=== PATIENT | male | born 1945 | race Caucasian/White ===

== ENCOUNTER 2023-01-07 19:24 | Inpatient (IN) | payer MEDICARE, OTHER ==
[~2023-01-07] VITALS: Ht 167.6 cm; Wt 90.3 kg
[2023-01-07 20:00] VITALS: BP 115/61; TEMP 98; O2SAT 99
[2023-01-07] MEDS ORDERED: REMEDY ESSENTIAL ZINC PASTE 113 GM TOP PRN (21:15)
[2023-01-07] MEDS ORDERED: TRAZ-182 PO (23:10)
[2023-01-07] MEDS ORDERED: ASPI81TA31 PO (23:10)
[2023-01-07] MEDS ORDERED: PANT40TA49 PO (23:10)
[2023-01-07] MEDS ORDERED: CHOL500062 PO (23:10)
[2023-01-07] MEDS ORDERED: TAMS-3 PO (23:10)
[2023-01-07] MEDS ORDERED: PROP10DR4 OP (23:10)
[2023-01-07] MEDS ORDERED: OXYC5TAB3 PO (23:10)
[2023-01-07] MEDS ORDERED: ACET-73 PO (23:10)
[2023-01-07] MEDS ORDERED: CALC200T42 PO (23:10)
[2023-01-07] MEDS ORDERED: METF-440 PO (23:10)
[2023-01-07] MEDS ORDERED: FINA1TAB11 PO (23:10)
[2023-01-07] MEDS ORDERED: FENO160T PO (23:10)
[2023-01-07] MEDS ORDERED: FERR324T17 PO (23:10)
[2023-01-07] MEDS ORDERED: IPRA0.2S6 NEB (23:20)
[2023-01-07] MEDS ORDERED: ALBU2.5V38 NEB (23:20)
[2023-01-08] VITALS (7 sets, daily range): BP systolic 95–120; BP diastolic 56–65; TEMP 98–98.4; O2SAT 96–99
[2023-01-08] MEDS: OXYCODONE HCL 5 MG TABLET PO PRN ×3 (04:57→20:43)
[2023-01-08] MEDS ORDERED: IPRA3AMP23 IH (11:44)
[2023-01-08] MEDS ORDERED: ALBU2.5V38 IH (11:45)
[2023-01-08] MEDS ORDERED: OXYCODONE HCL 5 MG TABLET PO PRN (13:15)
[2023-01-08] MEDS ORDERED: DEXTROSE 50% 50 ML DISP.SYRIN IV PRN (13:15)
[2023-01-08] MEDS ORDERED: ACETAMINOPHEN ES 500 MG TABLET PO PRN (13:15)
[2023-01-08] MEDS ORDERED: METF-495 PO (13:35)
[2023-01-08] MEDS: IPRATROPIUM BROMIDE 0.5 MG/2.5 ML NEBU NEB SCH ×2 (15:46→23:30)
[2023-01-08] MEDS: ALBUTEROL SULFATE 2.5 MG/3 ML NEBU IH SCH ×2 (15:46→23:30)
[2023-01-08] MEDS: BLOOD SUGAR DIAGNOSTIC 1 EACH STRIP VI SCH ×2 (17:16→20:51)
[2023-01-08] MEDS: CALCIUM CITRATE 950MG (=200 MG ELEMENTAL CALCIUM) TAB PO SCH (17:17)
[2023-01-08] MEDS: FERROUS GLUCONATE 324 MG TABLET PO SCH (17:18)
[2023-01-08] MEDS: PROTEIN SUPPLEMENT (PROSTAT) 30 ML LIQUID PO SCH (17:23)
[2023-01-08] MEDS: ASPIRIN 81 MG TAB.CHEW PO SCH (17:23)
[2023-01-08] MEDS ORDERED: METFORMIN HCL 500 MG TABLET PO SCH (18:00)
[2023-01-08] MEDS: TRAZODONE 50 MG TABLET PO SCH (20:43)
[2023-01-09] VITALS (8 sets, daily range): BP systolic 93–105; BP diastolic 47–66; TEMP 98–98.4; O2SAT 95–99
[2023-01-09] MEDS: PANTOPRAZOLE SODIUM 40 MG TABLET.DR PO SCH (06:17)
[2023-01-09 06:56] LABS: BASOPHILS % (AUTO) 0.5 % (0.0-2.0); EOSINOPHILS # (AUTO) 0.1 K/uL (0.0-0.7); EOSINOPHILS % (AUTO) 2.6 % (0.0-7.0); HEMOGLOBIN 7.7 g/dL (12.5-16.3); LYMPHOCYTES # (AUTO) 0.5 K/uL (0.8-4.8); LYMPHOCYTES % (AUTO) 12.9 % (20.5-51.5); MEAN CORPUSCULAR HEMOGLOBIN 30.4 uug (23.8-33.4); MEAN CORPUSCULAR HGB CONC 33 g/dL (32.5-36.3); MEAN CORPUSCULAR VOLUME 91.3 fL (73.0-96.2); MONOCYTES # (AUTO) 0.5 K/uL (0.1-1.30); MONOCYTES % (AUTO) 13.2 % (0.0-11.0); NEUTROPHILS # (AUTO) 2.8 K/uL (1.8-8.9); NEUTROPHILS % (AUTO) 70.8 % (38.5-71.5); PLATELET COUNT (AUTO) 79 K/uL (152-348); RED BLOOD CELL COUNT(AUTO) 2.52 MIL/uL (4.06-5.63); RED CELL DISTRIBUTION WIDTH 22.5 % (12.1-16.2); WHITE BLOOD COUNT (AUTO) 3.9 K/uL (3.6-10.2)
[2023-01-09 07:01] LABS: DIFFERENTIAL COMMENT 0
[2023-01-09] MEDS: BLOOD SUGAR DIAGNOSTIC 1 EACH STRIP VI SCH ×4 (07:03→20:50)
[2023-01-09 07:10] LABS: ALANINE AMINOTRANSFERASE 22 U/L (16-63); ALBUMIN 2.5 g/dL (3.4-5.0); ALKALINE PHOSPHATASE 135 U/L (50-136); ASPARTATE AMINOTRANSFERASE 29 U/L (15-37); CALCIUM 8.2 mg/dL (8.5-10.1); CARBON DIOXIDE 30 mmol/L (21-32); CHLORIDE 104 mmol/L (98-107); CREATININE 1.6 mg/dL (0.6-1.3); GLUCOSE 97 mg/dL (74-106); MAGNESIUM 2.1 mg/dL (1.8-2.4); PHOSPHOROUS 3.5 mg/dL (2.5-4.9); POTASSIUM 4.2 mmol/L (3.5-5.1); SODIUM SERUM 139 mmol/L (136-145); TOTAL PROTEIN, SERUM 5.3 g/dL (6.4-8.2); UREA NITROGEN, BLOOD 28 mg/dL (7-18)
[2023-01-09] MEDS: IPRATROPIUM BROMIDE 0.5 MG/2.5 ML NEBU NEB SCH ×3 (07:47→23:30)
[2023-01-09] MEDS: ALBUTEROL SULFATE 2.5 MG/3 ML NEBU IH SCH ×3 (07:47→23:30)
[2023-01-09] MEDS: FERROUS GLUCONATE 324 MG TABLET PO SCH ×2 (08:58→16:50)
[2023-01-09] MEDS: CALCIUM CITRATE 950MG (=200 MG ELEMENTAL CALCIUM) TAB PO SCH ×2 (08:58→16:49)
[2023-01-09] MEDS: METFORMIN XR 500 MG TAB.SR.24H PO SCH (08:59)
[2023-01-09] MEDS: POLYVINYL ALCOHOL OPHT DROPS 15 ML BOTTLE EACHEYE SCH (08:59)
[2023-01-09] MEDS ORDERED: FENOFIBRATE PO SCH (09:00)
[2023-01-09] MEDS ORDERED: TAMSULOSIN HCL 0.4 MG CAP.SR.24H PO SCH (09:00)
[2023-01-09] MEDS ORDERED: PROPYLENE GLYCOL OP SCH (09:00)
[2023-01-09] MEDS: PROTEIN SUPPLEMENT (PROSTAT) 30 ML LIQUID PO SCH ×2 (09:09→16:51)
[2023-01-09] MEDS: ASPIRIN 81 MG TAB.CHEW PO SCH ×2 (09:33→16:49)
[2023-01-09] MEDS: FENOFIBRATE NANOCRYSTALLIZED 145 MG TABLET PO SCH (09:33)
[2023-01-09] MEDS: FINASTERIDE 5 MG TABLET PO SCH (09:33)
[2023-01-09] MEDS: OXYCODONE HCL 5 MG TABLET PO PRN (14:40)
[2023-01-09] MEDS: TRAZODONE 50 MG TABLET PO SCH (20:46)
[2023-01-10] VITALS (10 sets, daily range): BP systolic 99–116; BP diastolic 44–61; TEMP 97.8–98.4; O2SAT 95–100
[2023-01-10] MEDS: PANTOPRAZOLE SODIUM 40 MG TABLET.DR PO SCH (06:06)
[2023-01-10] MEDS: BLOOD SUGAR DIAGNOSTIC 1 EACH STRIP VI SCH ×4 (06:31→20:51)
[2023-01-10] MEDS: IPRATROPIUM BROMIDE 0.5 MG/2.5 ML NEBU NEB SCH ×3 (07:24→23:24)
[2023-01-10] MEDS: ALBUTEROL SULFATE 2.5 MG/3 ML NEBU IH SCH ×3 (07:24→23:24)
[2023-01-10] MEDS: INSULIN REGULAR, HUMAN 300 UNIT/3 ML VIAL SQ PRN ×2 (07:50→11:54)
[2023-01-10] MEDS: FINASTERIDE 5 MG TABLET PO SCH (08:20)
[2023-01-10] MEDS: HYDROCODONE/APAP 10-325 MG TABLET PO SCH (08:20)
[2023-01-10] MEDS: FENOFIBRATE NANOCRYSTALLIZED 145 MG TABLET PO SCH (08:21)
[2023-01-10] MEDS: CALCIUM CITRATE 950MG (=200 MG ELEMENTAL CALCIUM) TAB PO SCH ×2 (08:23→16:43)
[2023-01-10] MEDS: FERROUS GLUCONATE 324 MG TABLET PO SCH ×2 (08:24→16:43)
[2023-01-10] MEDS: METFORMIN XR 500 MG TAB.SR.24H PO SCH (08:25)
[2023-01-10] MEDS: POLYVINYL ALCOHOL OPHT DROPS 15 ML BOTTLE EACHEYE SCH (08:26)
[2023-01-10] MEDS: PROTEIN SUPPLEMENT (PROSTAT) 30 ML LIQUID PO SCH ×2 (08:27→16:49)
[2023-01-10] MEDS: ASPIRIN 81 MG TAB.CHEW PO SCH ×2 (12:17→16:42)
[2023-01-10] MEDS: OXYCODONE HCL 5 MG TABLET PO PRN (13:09)
[2023-01-10] MEDS: TRAZODONE 50 MG TABLET PO SCH (20:42)
[2023-01-10] MEDS: TAMSULOSIN HCL 0.4 MG CAP.SR.24H PO SCH (20:42)
[2023-01-11] VITALS (8 sets, daily range): BP systolic 106–132; BP diastolic 52–69; TEMP 98.2–98.4; O2SAT 98–99
[2023-01-11] MEDS: PANTOPRAZOLE SODIUM 40 MG TABLET.DR PO SCH (06:35)
[2023-01-11] MEDS: BLOOD SUGAR DIAGNOSTIC 1 EACH STRIP VI SCH ×4 (06:39→21:28)
[2023-01-11] MEDS: IPRATROPIUM BROMIDE 0.5 MG/2.5 ML NEBU NEB SCH ×3 (07:18→23:30)
[2023-01-11] MEDS: ALBUTEROL SULFATE 2.5 MG/3 ML NEBU IH SCH ×3 (07:18→23:30)
[2023-01-11] MEDS: METFORMIN XR 500 MG TAB.SR.24H PO SCH (09:30)
[2023-01-11] MEDS: FINASTERIDE 5 MG TABLET PO SCH (09:30)
[2023-01-11] MEDS: HYDROCODONE/APAP 10-325 MG TABLET PO SCH (09:30)
[2023-01-11] MEDS: FERROUS GLUCONATE 324 MG TABLET PO SCH ×2 (09:30→17:11)
[2023-01-11] MEDS: ASPIRIN 81 MG TAB.CHEW PO SCH ×2 (09:30→17:10)
[2023-01-11] MEDS: POLYVINYL ALCOHOL OPHT DROPS 15 ML BOTTLE EACHEYE SCH (09:31)
[2023-01-11] MEDS: CALCIUM CITRATE 950MG (=200 MG ELEMENTAL CALCIUM) TAB PO SCH ×2 (09:31→17:10)
[2023-01-11] MEDS: PROTEIN SUPPLEMENT (PROSTAT) 30 ML LIQUID PO SCH ×2 (09:33→17:11)
[2023-01-11] MEDS ORDERED: MAGNESIUM HYDROXIDE 30 ML LIQUID UDC PO PRN (10:00)
[2023-01-11] MEDS: FENOFIBRATE NANOCRYSTALLIZED 145 MG TABLET PO SCH (11:18)
[2023-01-11] MEDS: INSULIN REGULAR, HUMAN 300 UNIT/3 ML VIAL SQ PRN ×2 (12:03→12:15)
[2023-01-11] MEDS: DOCUSATE SODIUM 100 MG CAPSULE PO SCH (21:28)
[2023-01-11] MEDS: TAMSULOSIN HCL 0.4 MG CAP.SR.24H PO SCH (21:41)
[2023-01-11] MEDS: TRAZODONE 50 MG TABLET PO SCH (21:41)
[2023-01-12] VITALS (7 sets, daily range): BP systolic 100–114; BP diastolic 71–76; TEMP 98.1–98.3; O2SAT 96–100
[2023-01-12] MEDS: PANTOPRAZOLE SODIUM 40 MG TABLET.DR PO SCH (06:16)
[2023-01-12 06:19] LABS: BASOPHILS % (AUTO) 0.9 % (0.0-2.0); EOSINOPHILS # (AUTO) 0.1 K/uL (0.0-0.7); EOSINOPHILS % (AUTO) 1.9 % (0.0-7.0); HEMOGLOBIN 7.9 g/dL (12.5-16.3); LYMPHOCYTES # (AUTO) 0.7 K/uL (0.8-4.8); LYMPHOCYTES % (AUTO) 17.5 % (20.5-51.5); MEAN CORPUSCULAR HEMOGLOBIN 30.4 uug (23.8-33.4); MEAN CORPUSCULAR HGB CONC 33 g/dL (32.5-36.3); MEAN CORPUSCULAR VOLUME 92.6 fL (73.0-96.2); MONOCYTES # (AUTO) 0.5 K/uL (0.1-1.30); MONOCYTES % (AUTO) 13.2 % (0.0-11.0); NEUTROPHILS # (AUTO) 2.5 K/uL (1.8-8.9); NEUTROPHILS % (AUTO) 66.5 % (38.5-71.5); PLATELET COUNT (AUTO) 93 K/uL (152-348); RED BLOOD CELL COUNT(AUTO) 2.59 MIL/uL (4.06-5.63); RED CELL DISTRIBUTION WIDTH 23.3 % (12.1-16.2); WHITE BLOOD COUNT (AUTO) 3.7 K/uL (3.6-10.2)
[2023-01-12] MEDS: BLOOD SUGAR DIAGNOSTIC 1 EACH STRIP VI SCH ×4 (06:36→21:16)
[2023-01-12 06:54] LABS: DIFFERENTIAL COMMENT 1
[2023-01-12 06:56] LABS: CALCIUM 8.5 mg/dL (8.5-10.1); CARBON DIOXIDE 31 mmol/L (21-32); CHLORIDE 105 mmol/L (98-107); CREATININE 1.6 mg/dL (0.6-1.3); GLUCOSE 119 mg/dL (74-106); SODIUM SERUM 140 mmol/L (136-145); UREA NITROGEN, BLOOD 29 mg/dL (7-18)
[2023-01-12] MEDS: IPRATROPIUM BROMIDE 0.5 MG/2.5 ML NEBU NEB SCH ×3 (07:52→23:30)
[2023-01-12] MEDS: ALBUTEROL SULFATE 2.5 MG/3 ML NEBU IH SCH ×3 (07:52→23:30)
[2023-01-12] MEDS: PROTEIN SUPPLEMENT (PROSTAT) 30 ML LIQUID PO SCH ×2 (09:00→16:52)
[2023-01-12] MEDS: HYDROCODONE/APAP 10-325 MG TABLET PO SCH (09:15)
[2023-01-12] MEDS: FENOFIBRATE NANOCRYSTALLIZED 145 MG TABLET PO SCH (09:15)
[2023-01-12] MEDS: ASPIRIN 81 MG TAB.CHEW PO SCH ×2 (09:15→16:51)
[2023-01-12] MEDS: FINASTERIDE 5 MG TABLET PO SCH (09:15)
[2023-01-12] MEDS: METFORMIN XR 500 MG TAB.SR.24H PO SCH (09:16)
[2023-01-12] MEDS: FERROUS GLUCONATE 324 MG TABLET PO SCH ×2 (09:16→16:51)
[2023-01-12] MEDS: CALCIUM CITRATE 950MG (=200 MG ELEMENTAL CALCIUM) TAB PO SCH ×2 (09:16→16:51)
[2023-01-12] MEDS: POLYVINYL ALCOHOL OPHT DROPS 15 ML BOTTLE EACHEYE SCH (09:17)
[2023-01-12] MEDS: OXYCODONE HCL 5 MG TABLET PO PRN (15:15)
[2023-01-12] MEDS: DOCUSATE SODIUM 100 MG CAPSULE PO SCH (21:17)
[2023-01-12] MEDS: TAMSULOSIN HCL 0.4 MG CAP.SR.24H PO SCH (21:17)
[2023-01-12] MEDS: TRAZODONE 50 MG TABLET PO SCH (21:17)
[2023-01-13] VITALS (7 sets, daily range): BP systolic 111; BP diastolic 61; TEMP 98.2–98.6; O2SAT 98–100
[2023-01-13] MEDS: PANTOPRAZOLE SODIUM 40 MG TABLET.DR PO SCH (06:10)
[2023-01-13] MEDS: BLOOD SUGAR DIAGNOSTIC 1 EACH STRIP VI SCH (06:37)
[2023-01-13] MEDS: IPRATROPIUM BROMIDE 0.5 MG/2.5 ML NEBU NEB SCH ×3 (07:30→23:30)
[2023-01-13] MEDS: ALBUTEROL SULFATE 2.5 MG/3 ML NEBU IH SCH ×3 (07:30→23:30)
[2023-01-13] MEDS: FENOFIBRATE NANOCRYSTALLIZED 145 MG TABLET PO SCH (08:38)
[2023-01-13] MEDS: FINASTERIDE 5 MG TABLET PO SCH (08:38)
[2023-01-13] MEDS: ASPIRIN 81 MG TAB.CHEW PO SCH ×2 (08:38→17:06)
[2023-01-13] MEDS: PROTEIN SUPPLEMENT (PROSTAT) 30 ML LIQUID PO SCH (08:40)
[2023-01-13] MEDS: CALCIUM CITRATE 950MG (=200 MG ELEMENTAL CALCIUM) TAB PO SCH ×2 (08:40→17:06)
[2023-01-13] MEDS: METFORMIN XR 500 MG TAB.SR.24H PO SCH (08:41)
[2023-01-13] MEDS: FERROUS GLUCONATE 324 MG TABLET PO SCH ×2 (08:41→17:06)
[2023-01-13] MEDS: POLYVINYL ALCOHOL OPHT DROPS 15 ML BOTTLE EACHEYE SCH (08:42)
[2023-01-13] MEDS: HYDROCODONE/APAP 10-325 MG TABLET PO SCH (09:00)
[2023-01-13] MEDS: OXYCODONE HCL 5 MG TABLET PO PRN (14:48)
[2023-01-13] MEDS: TAMSULOSIN HCL 0.4 MG CAP.SR.24H PO SCH (20:12)
[2023-01-13] MEDS: TRAZODONE 50 MG TABLET PO SCH (20:12)
[2023-01-13] MEDS: DOCUSATE SODIUM 100 MG CAPSULE PO SCH (20:12)
[2023-01-14] VITALS (8 sets, daily range): BP systolic 96–121; BP diastolic 55–70; TEMP 97.9–98.3; O2SAT 95–100
[2023-01-14] MEDS: PANTOPRAZOLE SODIUM 40 MG TABLET.DR PO SCH (06:06)
[2023-01-14] MEDS: CALCIUM CITRATE 950MG (=200 MG ELEMENTAL CALCIUM) TAB PO SCH ×2 (08:38→17:14)
[2023-01-14] MEDS: FENOFIBRATE NANOCRYSTALLIZED 145 MG TABLET PO SCH (08:40)
[2023-01-14] MEDS: ALBUTEROL SULFATE 2.5 MG/3 ML NEBU IH SCH ×3 (08:40→23:30)
[2023-01-14] MEDS: FINASTERIDE 5 MG TABLET PO SCH (08:40)
[2023-01-14] MEDS: IPRATROPIUM BROMIDE 0.5 MG/2.5 ML NEBU NEB SCH ×3 (08:40→23:30)
[2023-01-14] MEDS: HYDROCODONE/APAP 10-325 MG TABLET PO SCH (08:40)
[2023-01-14] MEDS: ASPIRIN 81 MG TAB.CHEW PO SCH ×2 (08:40→17:14)
[2023-01-14] MEDS: FERROUS GLUCONATE 324 MG TABLET PO SCH ×2 (08:40→17:16)
[2023-01-14] MEDS: POLYVINYL ALCOHOL OPHT DROPS 15 ML BOTTLE EACHEYE SCH (08:44)
[2023-01-14] MEDS: METFORMIN XR 500 MG TAB.SR.24H PO SCH (08:44)
[2023-01-14] MEDS: OXYCODONE HCL 5 MG TABLET PO PRN (11:14)
[2023-01-14] MEDS: TRAZODONE 50 MG TABLET PO SCH (20:32)
[2023-01-14] MEDS: TAMSULOSIN HCL 0.4 MG CAP.SR.24H PO SCH (20:32)
[2023-01-14] MEDS: DOCUSATE SODIUM 100 MG CAPSULE PO SCH (20:32)
[2023-01-15] VITALS (10 sets, daily range): BP systolic 96–136; BP diastolic 49–66; TEMP 97.7–99.2; O2SAT 96–99
[2023-01-15 06:01] LABS: EOSINOPHILS # (AUTO) 0.1 K/uL (0.0-0.7); NEUTROPHILS # (AUTO) 1.7 K/uL (1.8-8.9); WHITE BLOOD COUNT (AUTO) 2.6 K/uL (3.6-10.2)
[2023-01-15 06:04] LABS: BASOPHILS % (AUTO) 0.9 % (0.0-2.0); EOSINOPHILS % (AUTO) 2.3 % (0.0-7.0); LYMPHOCYTES # (AUTO) 0.5 K/uL (0.8-4.8); LYMPHOCYTES % (AUTO) 17.5 % (20.5-51.5); MEAN CORPUSCULAR HEMOGLOBIN 30.2 uug (23.8-33.4); MEAN CORPUSCULAR HGB CONC 33 g/dL (32.5-36.3); MEAN CORPUSCULAR VOLUME 92.9 fL (73.0-96.2); MONOCYTES # (AUTO) 0.3 K/uL (0.1-1.30); MONOCYTES % (AUTO) 13.2 % (0.0-11.0); NEUTROPHILS % (AUTO) 66.1 % (38.5-71.5); PLATELET COUNT (AUTO) 90 K/uL (152-348)
[2023-01-15] MEDS: PANTOPRAZOLE SODIUM 40 MG TABLET.DR PO SCH (06:17)
[2023-01-15 07:03] LABS: IRON, SERUM 39 ug/dL (50-175)
[2023-01-15 07:23] LABS: ALANINE AMINOTRANSFERASE 22 U/L (16-63); ALBUMIN 2.4 g/dL (3.4-5.0); ALKALINE PHOSPHATASE 246 U/L (50-136); ASPARTATE AMINOTRANSFERASE 26 U/L (15-37); BILIRUBIN,TOTAL 1.6 mg/dL (0.2-1.0); CALCIUM 8.2 mg/dL (8.5-10.1); CARBON DIOXIDE 30 mmol/L (21-32); CHLORIDE 105 mmol/L (98-107); CHOLESTEROL 103 mg/dL (<200); CREATININE 1.6 mg/dL (0.6-1.3); GLUCOSE 127 mg/dL (74-106); HDL CHOLESTEROL 34 mg/dL (40-60); MAGNESIUM 2.2 mg/dL (1.8-2.4); PHOSPHOROUS 3.2 mg/dL (2.5-4.9); SODIUM SERUM 138 mmol/L (136-145); TOTAL PROTEIN, SERUM 5.1 g/dL (6.4-8.2); TRIGLYCERIDES 100 MG/DL (30-150); UREA NITROGEN, BLOOD 25 mg/dL (7-18)
[2023-01-15 07:29] LABS: DIFFERENTIAL COMMENT 1; HEMATOCRIT 19.9 % (36.7-47.1); HEMOGLOBIN 6.5 g/dL (12.5-16.3); RED BLOOD CELL COUNT(AUTO) 2.14 MIL/uL (4.06-5.63)
[2023-01-15] MEDS: ALBUTEROL SULFATE 2.5 MG/3 ML NEBU IH SCH ×3 (07:35→23:30)
[2023-01-15] MEDS: IPRATROPIUM BROMIDE 0.5 MG/2.5 ML NEBU NEB SCH ×3 (07:35→23:30)
[2023-01-15] MEDS: METFORMIN XR 500 MG TAB.SR.24H PO SCH (08:01)
[2023-01-15] MEDS: FENOFIBRATE NANOCRYSTALLIZED 145 MG TABLET PO SCH (08:01)
[2023-01-15 08:11] LABS: THYROID STIMULATING HORMONE 2.832 mIU/mL (0.358-3.740)
[2023-01-15] MEDS: ASPIRIN 81 MG TAB.CHEW PO SCH ×2 (08:52→17:21)
[2023-01-15] MEDS: FINASTERIDE 5 MG TABLET PO SCH (08:52)
[2023-01-15] MEDS: HYDROCODONE/APAP 10-325 MG TABLET PO SCH (08:52)
[2023-01-15] MEDS: CALCIUM CITRATE 950MG (=200 MG ELEMENTAL CALCIUM) TAB PO SCH ×2 (08:52→17:21)
[2023-01-15] MEDS: FERROUS GLUCONATE 324 MG TABLET PO SCH ×2 (08:52→17:21)
[2023-01-15] MEDS: POLYVINYL ALCOHOL OPHT DROPS 15 ML BOTTLE EACHEYE SCH (08:53)
[2023-01-15 18:58] LABS: *RHEUMATOID FACTOR SCREEN NEGATIVE (NEGATIVE)
[2023-01-15] MEDS: TAMSULOSIN HCL 0.4 MG CAP.SR.24H PO SCH (21:17)
[2023-01-15] MEDS: TRAZODONE 50 MG TABLET PO SCH (21:17)
[2023-01-15] MEDS: DOCUSATE SODIUM 100 MG CAPSULE PO SCH (21:17)
[2023-01-16] VITALS (10 sets, daily range): BP systolic 95–132; BP diastolic 50–70; TEMP 97.9–98.5; O2SAT 95–100
[2023-01-16] MEDS: PANTOPRAZOLE SODIUM 40 MG TABLET.DR PO SCH (06:53)
[2023-01-16] MEDS: ALBUTEROL SULFATE 2.5 MG/3 ML NEBU IH SCH ×3 (07:54→23:46)
[2023-01-16] MEDS: IPRATROPIUM BROMIDE 0.5 MG/2.5 ML NEBU NEB SCH ×3 (07:54→23:46)
[2023-01-16 08:02] LABS: BILIRUBIN,TOTAL 1.7 mg/dL (0.2-1.0); C-REACTIVE PROTEIN 1.8 mg/dL (0.0-0.9)
[2023-01-16] MEDS: CALCIUM CITRATE 950MG (=200 MG ELEMENTAL CALCIUM) TAB PO SCH ×2 (08:26→17:23)
[2023-01-16] MEDS: METFORMIN XR 500 MG TAB.SR.24H PO SCH (08:26)
[2023-01-16] MEDS: FERROUS GLUCONATE 324 MG TABLET PO SCH ×2 (08:26→17:23)
[2023-01-16] MEDS: POLYVINYL ALCOHOL OPHT DROPS 15 ML BOTTLE EACHEYE SCH (08:26)
[2023-01-16] MEDS: ASPIRIN 81 MG TAB.CHEW PO SCH ×2 (08:32→17:22)
[2023-01-16] MEDS: FENOFIBRATE NANOCRYSTALLIZED 145 MG TABLET PO SCH (08:32)
[2023-01-16] MEDS: FINASTERIDE 5 MG TABLET PO SCH (08:32)
[2023-01-16] MEDS: HYDROCODONE/APAP 10-325 MG TABLET PO SCH (08:32)
[2023-01-16 08:47] LABS: HIV-1 p24 ANTIGEN NON REACTIVE (NONREACTIVE); HIV-1/2 ANTIBODY NON REACTIVE (NONREACTIVE)
[2023-01-16] MEDS: SOD FERRIC GLUC COMPLX/SUCROSE 125 MG in IV NORMAL SALINE 100 ML IV SCH (13:47)
[2023-01-16] MEDS: TAMSULOSIN HCL 0.4 MG CAP.SR.24H PO SCH (21:59)
[2023-01-16] MEDS: TRAZODONE 50 MG TABLET PO SCH (21:59)
[2023-01-16] MEDS: DOCUSATE SODIUM 100 MG CAPSULE PO SCH (21:59)
[2023-01-17] VITALS (12 sets, daily range): BP systolic 97–117; BP diastolic 48–65; TEMP 97.6–98.6; O2SAT 96–100
[2023-01-17] MEDS: PANTOPRAZOLE SODIUM 40 MG TABLET.DR PO SCH (06:32)
[2023-01-17 06:56] LABS: BASOPHILS % (AUTO) 1.2 % (0.0-2.0); EOSINOPHILS # (AUTO) 0.1 K/uL (0.0-0.7); EOSINOPHILS % (AUTO) 3.1 % (0.0-7.0); HEMATOCRIT 23.6 % (36.7-47.1); LYMPHOCYTES # (AUTO) 0.4 K/uL (0.8-4.8); LYMPHOCYTES % (AUTO) 16.9 % (20.5-51.5); MEAN CORPUSCULAR HGB CONC 31 g/dL (32.5-36.3); MEAN CORPUSCULAR VOLUME 92.6 fL (73.0-96.2); MONOCYTES # (AUTO) 0.3 K/uL (0.1-1.30); MONOCYTES % (AUTO) 12.3 % (0.0-11.0); NEUTROPHILS # (AUTO) 1.6 K/uL (1.8-8.9); NEUTROPHILS % (AUTO) 66.5 % (38.5-71.5); PLATELET COUNT (AUTO) 95 K/uL (152-348); RED BLOOD CELL COUNT(AUTO) 2.55 MIL/uL (4.06-5.63); RED CELL DISTRIBUTION WIDTH 21.3 % (12.1-16.2); WHITE BLOOD COUNT (AUTO) 2.4 K/uL (3.6-10.2)
[2023-01-17 07:12] LABS: DIFFERENTIAL COMMENT 1; HEMOGLOBIN 7.4 g/dL (12.5-16.3)
[2023-01-17] MEDS: IPRATROPIUM BROMIDE 0.5 MG/2.5 ML NEBU NEB SCH ×3 (07:21→23:11)
[2023-01-17] MEDS: ALBUTEROL SULFATE 2.5 MG/3 ML NEBU IH SCH ×3 (07:21→23:11)
[2023-01-17 07:23] LABS: ALANINE AMINOTRANSFERASE 13 U/L (16-63); ALBUMIN 2.5 g/dL (3.4-5.0); ALKALINE PHOSPHATASE 249 U/L (50-136); ASPARTATE AMINOTRANSFERASE 31 U/L (15-37); BILIRUBIN,TOTAL 1.8 mg/dL (0.2-1.0); CALCIUM 8.5 mg/dL (8.5-10.1); CARBON DIOXIDE 30 mmol/L (21-32); CHLORIDE 106 mmol/L (98-107); CREATININE 1.5 mg/dL (0.6-1.3); GLUCOSE 100 mg/dL (74-106); POTASSIUM 4.3 mmol/L (3.5-5.1); SODIUM SERUM 140 mmol/L (136-145); TOTAL PROTEIN, SERUM 5.4 g/dL (6.4-8.2); UREA NITROGEN, BLOOD 21 mg/dL (7-18)
[2023-01-17] MEDS: METFORMIN XR 500 MG TAB.SR.24H PO SCH (08:26)
[2023-01-17] MEDS: HYDROCODONE/APAP 10-325 MG TABLET PO SCH (08:26)
[2023-01-17] MEDS: ASPIRIN 81 MG TAB.CHEW PO SCH (08:26)
[2023-01-17] MEDS: CALCIUM CITRATE 950MG (=200 MG ELEMENTAL CALCIUM) TAB PO SCH ×2 (08:26→17:16)
[2023-01-17] MEDS: FERROUS GLUCONATE 324 MG TABLET PO SCH ×2 (08:26→17:16)
[2023-01-17] MEDS: POLYVINYL ALCOHOL OPHT DROPS 15 ML BOTTLE EACHEYE SCH (08:27)
[2023-01-17] MEDS: FINASTERIDE 5 MG TABLET PO SCH (08:27)
[2023-01-17] MEDS: FENOFIBRATE NANOCRYSTALLIZED 145 MG TABLET PO SCH (08:27)
[2023-01-17 09:17] LABS: *OCCULT BLOOD STOOL POSITIVE (NEGATIVE)
[2023-01-17] MEDS: SOD FERRIC GLUC COMPLX/SUCROSE 125 MG in IV NORMAL SALINE 100 ML IV SCH (16:14)
[2023-01-17] MEDS: TAMSULOSIN HCL 0.4 MG CAP.SR.24H PO SCH (20:16)
[2023-01-17] MEDS: TRAZODONE 50 MG TABLET PO SCH (20:16)
[2023-01-17] MEDS: DOCUSATE SODIUM 100 MG CAPSULE PO SCH (20:16)
[2023-01-18] VITALS (9 sets, daily range): BP systolic 110–139; BP diastolic 62–77; TEMP 97.7–98.7; O2SAT 98–99
[2023-01-18] MEDS: PANTOPRAZOLE SODIUM 40 MG TABLET.DR PO SCH (06:10)
[2023-01-18] MEDS: IPRATROPIUM BROMIDE 0.5 MG/2.5 ML NEBU NEB SCH ×3 (07:51→23:48)
[2023-01-18] MEDS: ALBUTEROL SULFATE 2.5 MG/3 ML NEBU IH SCH ×3 (07:51→23:48)
[2023-01-18] MEDS: FINASTERIDE 5 MG TABLET PO SCH (08:34)
[2023-01-18] MEDS: HYDROCODONE/APAP 10-325 MG TABLET PO SCH (08:35)
[2023-01-18] MEDS: CALCIUM CITRATE 950MG (=200 MG ELEMENTAL CALCIUM) TAB PO SCH ×2 (08:37→17:26)
[2023-01-18] MEDS: METFORMIN XR 500 MG TAB.SR.24H PO SCH (08:37)
[2023-01-18] MEDS: FERROUS GLUCONATE 324 MG TABLET PO SCH ×2 (08:37→17:26)
[2023-01-18] MEDS: POLYVINYL ALCOHOL OPHT DROPS 15 ML BOTTLE EACHEYE SCH (08:38)
[2023-01-18 09:11] LABS: BASOPHILS % (AUTO) 0.7 % (0.0-2.0); EOSINOPHILS # (AUTO) 0.1 K/uL (0.0-0.7); EOSINOPHILS % (AUTO) 1.7 % (0.0-7.0); HEMATOCRIT 27.6 % (36.7-47.1); HEMOGLOBIN 8.9 g/dL (12.5-16.3); LYMPHOCYTES # (AUTO) 0.5 K/uL (0.8-4.8); LYMPHOCYTES % (AUTO) 17.5 % (20.5-51.5); MEAN CORPUSCULAR HEMOGLOBIN 29.3 uug (23.8-33.4); MEAN CORPUSCULAR HGB CONC 32 g/dL (32.5-36.3); MEAN CORPUSCULAR VOLUME 91.4 fL (73.0-96.2); MONOCYTES # (AUTO) 0.3 K/uL (0.1-1.30); MONOCYTES % (AUTO) 10.7 % (0.0-11.0); NEUTROPHILS # (AUTO) 2.2 K/uL (1.8-8.9); NEUTROPHILS % (AUTO) 69.4 % (38.5-71.5); PLATELET COUNT (AUTO) 100 K/uL (152-348); RED BLOOD CELL COUNT(AUTO) 3.02 MIL/uL (4.06-5.63); RED CELL DISTRIBUTION WIDTH 21.9 % (12.1-16.2); WHITE BLOOD COUNT (AUTO) 3.1 K/uL (3.6-10.2)
[2023-01-18 09:15] LABS: DIFFERENTIAL COMMENT 1
[2023-01-18 09:27] LABS: ALANINE AMINOTRANSFERASE 19 U/L (16-63); ALBUMIN 2.8 g/dL (3.4-5.0); ALKALINE PHOSPHATASE 278 U/L (50-136); ASPARTATE AMINOTRANSFERASE 34 U/L (15-37); BILIRUBIN,TOTAL 2.2 mg/dL (0.2-1.0); CALCIUM 8.6 mg/dL (8.5-10.1); CHLORIDE 109 mmol/L (98-107); CREATININE 1.5 mg/dL (0.6-1.3); GLUCOSE 111 mg/dL (74-106); POTASSIUM 3.9 mmol/L (3.5-5.1); SODIUM SERUM 137 mmol/L (136-145); TOTAL PROTEIN, SERUM 5.8 g/dL (6.4-8.2); UREA NITROGEN, BLOOD 21 mg/dL (7-18)
[2023-01-18 09:52] LABS: CARBON DIOXIDE 26 mmol/L (21-32)
[2023-01-18 11:06] LABS: *ANTI-SCLERODERMA-70 AB <0.2 AI (0.0-0.9); *RNP ANTIBODIES <0.2 AI (0.0-0.9); *SJOGREN'S ANTI-SS-A <0.2 AI (0.0-0.9); *SJOGREN'S ANTI-SS-B <0.2 AI (0.0-0.9); *SMITH ANTIBODIES <0.2 AI (0.0-0.9); ANTI-DNA(DS) AB, QN 1 IU/mL (0-9); ANTI-NUCLEAR AB DIRECT Negative (Negative)
[2023-01-18] MEDS: SOD FERRIC GLUC COMPLX/SUCROSE 125 MG in IV NORMAL SALINE 100 ML IV SCH (13:43)
[2023-01-18] MEDS: TAMSULOSIN HCL 0.4 MG CAP.SR.24H PO SCH (21:06)
[2023-01-18] MEDS: DOCUSATE SODIUM 100 MG CAPSULE PO SCH (21:06)
[2023-01-18] MEDS: TRAZODONE 50 MG TABLET PO SCH (21:06)
[2023-01-19] VITALS (9 sets, daily range): BP systolic 109–136; BP diastolic 58–70; TEMP 97.8–98.5; O2SAT 95–100
[2023-01-19 03:06] LABS: HEPATITIS B CORE AB, IgM Negative (Negative); HEPATITIS B CORE AB, TOTAL Negative (Negative); HEPATITIS B SURFACE AB, QUAL Reactive (.); HEPATITIS B SURFACE AG Negative (Negative); HEPATITIS C VIRUS ANTIBODY Non Reactive (Non Reactive)
[2023-01-19] MEDS: PANTOPRAZOLE SODIUM 40 MG TABLET.DR PO SCH (06:01)
[2023-01-19 06:46] LABS: BASOPHILS % (AUTO) 0.7 % (0.0-2.0); EOSINOPHILS # (AUTO) 0.1 K/uL (0.0-0.7); EOSINOPHILS % (AUTO) 2.3 % (0.0-7.0); HEMATOCRIT 26.2 % (36.7-47.1); HEMOGLOBIN 8.5 g/dL (12.5-16.3); LYMPHOCYTES # (AUTO) 0.4 K/uL (0.8-4.8); LYMPHOCYTES % (AUTO) 13.8 % (20.5-51.5); MEAN CORPUSCULAR HEMOGLOBIN 29.7 uug (23.8-33.4); MEAN CORPUSCULAR HGB CONC 32 g/dL (32.5-36.3); MONOCYTES # (AUTO) 0.3 K/uL (0.1-1.30); MONOCYTES % (AUTO) 10.6 % (0.0-11.0); NEUTROPHILS # (AUTO) 2.3 K/uL (1.8-8.9); NEUTROPHILS % (AUTO) 72.6 % (38.5-71.5); PLATELET COUNT (AUTO) 97 K/uL (152-348); RED BLOOD CELL COUNT(AUTO) 2.85 MIL/uL (4.06-5.63); RED CELL DISTRIBUTION WIDTH 21.5 % (12.1-16.2); WHITE BLOOD COUNT (AUTO) 3.1 K/uL (3.6-10.2)
[2023-01-19 06:58] LABS: DIFFERENTIAL COMMENT 1
[2023-01-19] MEDS: IPRATROPIUM BROMIDE 0.5 MG/2.5 ML NEBU NEB SCH ×3 (07:37→23:30)
[2023-01-19] MEDS: ALBUTEROL SULFATE 2.5 MG/3 ML NEBU IH SCH ×3 (07:37→23:30)
[2023-01-19] MEDS: FINASTERIDE 5 MG TABLET PO SCH (08:24)
[2023-01-19] MEDS: METFORMIN XR 500 MG TAB.SR.24H PO SCH (08:24)
[2023-01-19] MEDS: HYDROCODONE/APAP 10-325 MG TABLET PO SCH (08:24)
[2023-01-19] MEDS: CALCIUM CITRATE 950MG (=200 MG ELEMENTAL CALCIUM) TAB PO SCH ×2 (08:25→17:28)
[2023-01-19] MEDS: FERROUS GLUCONATE 324 MG TABLET PO SCH ×2 (08:25→17:28)
[2023-01-19] MEDS: POLYVINYL ALCOHOL OPHT DROPS 15 ML BOTTLE EACHEYE SCH (08:31)
[2023-01-19 09:06] LABS: A/G RATIO 1.2 (0.7-1.7); ALBUMIN 2.9 g/dL (2.9-4.4); ALPHA-1-GLOBULIN 0.3 g/dL (0.0-0.4); ALPHA-2-GLOBULIN 0.5 g/dL (0.4-1.0); BETA GLOBULIN 0.9 g/dL (0.7-1.3); GAMMA GLOBULIN 0.8 g/dL (0.4-1.8); GLOBULIN, TOTAL 2.5 g/dL (2.2-3.9); M-SPIKE Not Observed g/dL (Not Observed)
[2023-01-19] MEDS: SOD FERRIC GLUC COMPLX/SUCROSE 125 MG in IV NORMAL SALINE 100 ML IV SCH (13:40)
[2023-01-19] MEDS: DOCUSATE SODIUM 100 MG CAPSULE PO SCH ×2 (21:00→21:13)
[2023-01-19] MEDS: TAMSULOSIN HCL 0.4 MG CAP.SR.24H PO SCH (21:13)
[2023-01-19] MEDS: TRAZODONE 50 MG TABLET PO SCH (21:13)
[2023-01-20] VITALS (10 sets, daily range): BP systolic 110–121; BP diastolic 40–68; TEMP 98–98.3; O2SAT 97–99
[2023-01-20] MEDS: PANTOPRAZOLE SODIUM 40 MG TABLET.DR PO SCH (06:27)
[2023-01-20 07:13] LABS: BASOPHILS % (AUTO) 0.7 % (0.0-2.0); EOSINOPHILS # (AUTO) 0.1 K/uL (0.0-0.7); EOSINOPHILS % (AUTO) 2.5 % (0.0-7.0); HEMATOCRIT 24.8 % (36.7-47.1); HEMOGLOBIN 8.1 g/dL (12.5-16.3); LYMPHOCYTES # (AUTO) 0.4 K/uL (0.8-4.8); LYMPHOCYTES % (AUTO) 16.5 % (20.5-51.5); MEAN CORPUSCULAR HEMOGLOBIN 30.2 uug (23.8-33.4); MEAN CORPUSCULAR HGB CONC 33 g/dL (32.5-36.3); MEAN CORPUSCULAR VOLUME 92.6 fL (73.0-96.2); MONOCYTES # (AUTO) 0.3 K/uL (0.1-1.30); MONOCYTES % (AUTO) 12.2 % (0.0-11.0); NEUTROPHILS # (AUTO) 1.7 K/uL (1.8-8.9); NEUTROPHILS % (AUTO) 68.1 % (38.5-71.5); PLATELET COUNT (AUTO) 85 K/uL (152-348); RED BLOOD CELL COUNT(AUTO) 2.67 MIL/uL (4.06-5.63); RED CELL DISTRIBUTION WIDTH 22.2 % (12.1-16.2); WHITE BLOOD COUNT (AUTO) 2.6 K/uL (3.6-10.2)
[2023-01-20 07:22] LABS: DIFFERENTIAL COMMENT 1
[2023-01-20] MEDS: ALBUTEROL SULFATE 2.5 MG/3 ML NEBU IH SCH ×3 (08:03→23:45)
[2023-01-20] MEDS: IPRATROPIUM BROMIDE 0.5 MG/2.5 ML NEBU NEB SCH ×3 (08:03→23:45)
[2023-01-20] MEDS: DOCUSATE SODIUM 100 MG CAPSULE PO SCH ×3 (10:04→21:58)
[2023-01-20] MEDS: FERROUS GLUCONATE 324 MG TABLET PO SCH ×2 (10:05→18:02)
[2023-01-20] MEDS: POLYVINYL ALCOHOL OPHT DROPS 15 ML BOTTLE EACHEYE SCH (10:05)
[2023-01-20] MEDS: HYDROCODONE/APAP 10-325 MG TABLET PO SCH (10:05)
[2023-01-20] MEDS: CALCIUM CITRATE 950MG (=200 MG ELEMENTAL CALCIUM) TAB PO SCH ×2 (10:05→18:02)
[2023-01-20] MEDS: METFORMIN XR 500 MG TAB.SR.24H PO SCH (10:05)
[2023-01-20] MEDS: FINASTERIDE 5 MG TABLET PO SCH (10:06)
[2023-01-20] MEDS: SOD FERRIC GLUC COMPLX/SUCROSE 125 MG in IV NORMAL SALINE 100 ML IV SCH (14:13)
[2023-01-20] MEDS: TAMSULOSIN HCL 0.4 MG CAP.SR.24H PO SCH (21:57)
[2023-01-20] MEDS: TRAZODONE 50 MG TABLET PO SCH (21:59)
[2023-01-21] VITALS (9 sets, daily range): BP systolic 105–123; BP diastolic 60–67; TEMP 97.5–98.1; O2SAT 97–100
[2023-01-21 06:49] LABS: BASOPHILS % (AUTO) 0.7 % (0.0-2.0); EOSINOPHILS # (AUTO) 0.1 K/uL (0.0-0.7); HEMATOCRIT 26.6 % (36.7-47.1); HEMOGLOBIN 8.7 g/dL (12.5-16.3); LYMPHOCYTES # (AUTO) 0.4 K/uL (0.8-4.8); LYMPHOCYTES % (AUTO) 16.3 % (20.5-51.5); MEAN CORPUSCULAR HEMOGLOBIN 30.6 uug (23.8-33.4); MEAN CORPUSCULAR HGB CONC 33 g/dL (32.5-36.3); MEAN CORPUSCULAR VOLUME 93.5 fL (73.0-96.2); MONOCYTES # (AUTO) 0.3 K/uL (0.1-1.30); MONOCYTES % (AUTO) 12.5 % (0.0-11.0); NEUTROPHILS # (AUTO) 1.5 K/uL (1.8-8.9); NEUTROPHILS % (AUTO) 67.5 % (38.5-71.5); PLATELET COUNT (AUTO) 89 K/uL (152-348); RED BLOOD CELL COUNT(AUTO) 2.84 MIL/uL (4.06-5.63); WHITE BLOOD COUNT (AUTO) 2.2 K/uL (3.6-10.2)
[2023-01-21 07:05] LABS: DIFFERENTIAL COMMENT 1
[2023-01-21 07:10] LABS: CALCIUM 8.7 mg/dL (8.5-10.1); CARBON DIOXIDE 27 mmol/L (21-32); CHLORIDE 106 mmol/L (98-107); CREATININE 1.5 mg/dL (0.6-1.3); GLUCOSE 101 mg/dL (74-106); PHOSPHOROUS 4.1 mg/dL (2.5-4.9); POTASSIUM 3.7 mmol/L (3.5-5.1); SODIUM SERUM 139 mmol/L (136-145); UREA NITROGEN, BLOOD 21 mg/dL (7-18)
[2023-01-21] MEDS: PANTOPRAZOLE SODIUM 40 MG TABLET.DR PO SCH (07:17)
[2023-01-21] MEDS: ALBUTEROL SULFATE 2.5 MG/3 ML NEBU IH SCH ×3 (07:40→23:20)
[2023-01-21] MEDS: IPRATROPIUM BROMIDE 0.5 MG/2.5 ML NEBU NEB SCH ×3 (07:40→23:20)
[2023-01-21] MEDS: DOCUSATE SODIUM 100 MG CAPSULE PO SCH ×3 (09:02→22:07)
[2023-01-21] MEDS: POLYVINYL ALCOHOL OPHT DROPS 15 ML BOTTLE EACHEYE SCH (09:02)
[2023-01-21] MEDS: FERROUS GLUCONATE 324 MG TABLET PO SCH ×2 (09:03→16:40)
[2023-01-21] MEDS: CALCIUM CITRATE 950MG (=200 MG ELEMENTAL CALCIUM) TAB PO SCH ×2 (09:03→16:40)
[2023-01-21] MEDS: HYDROCODONE/APAP 10-325 MG TABLET PO SCH (09:03)
[2023-01-21] MEDS: METFORMIN XR 500 MG TAB.SR.24H PO SCH (09:03)
[2023-01-21] MEDS: FINASTERIDE 5 MG TABLET PO SCH (09:04)
[2023-01-21] MEDS: TRAZODONE 50 MG TABLET PO SCH (22:05)
[2023-01-21] MEDS: TAMSULOSIN HCL 0.4 MG CAP.SR.24H PO SCH (22:07)
[2023-01-22] VITALS (10 sets, daily range): BP systolic 115–123; BP diastolic 66–74; TEMP 97.6–99; O2SAT 97–99
[2023-01-22] MEDS: PANTOPRAZOLE SODIUM 40 MG TABLET.DR PO SCH (06:51)
[2023-01-22 07:01] LABS: DIFFERENTIAL COMMENT 0; EOSINOPHILS # (AUTO) 0.1 K/uL (0.0-0.7); EOSINOPHILS % (AUTO) 2.7 % (0.0-7.0); HEMATOCRIT 27.5 % (36.7-47.1); HEMOGLOBIN 8.9 g/dL (12.5-16.3); LYMPHOCYTES # (AUTO) 0.3 K/uL (0.8-4.8); LYMPHOCYTES % (AUTO) 13.5 % (20.5-51.5); MEAN CORPUSCULAR HEMOGLOBIN 30.6 uug (23.8-33.4); MEAN CORPUSCULAR HGB CONC 33 g/dL (32.5-36.3); MEAN CORPUSCULAR VOLUME 94.3 fL (73.0-96.2); MONOCYTES # (AUTO) 0.3 K/uL (0.1-1.30); MONOCYTES % (AUTO) 11.9 % (0.0-11.0); NEUTROPHILS # (AUTO) 1.8 K/uL (1.8-8.9); NEUTROPHILS % (AUTO) 70.9 % (38.5-71.5); PLATELET COUNT (AUTO) 88 K/uL (152-348); RED BLOOD CELL COUNT(AUTO) 2.91 MIL/uL (4.06-5.63); RED CELL DISTRIBUTION WIDTH 22.3 % (12.1-16.2); WHITE BLOOD COUNT (AUTO) 2.5 K/uL (3.6-10.2)
[2023-01-22] MEDS: ALBUTEROL SULFATE 2.5 MG/3 ML NEBU IH SCH ×3 (08:16→23:30)
[2023-01-22] MEDS: IPRATROPIUM BROMIDE 0.5 MG/2.5 ML NEBU NEB SCH ×3 (08:16→23:30)
[2023-01-22] MEDS: POLYVINYL ALCOHOL OPHT DROPS 15 ML BOTTLE EACHEYE SCH (08:34)
[2023-01-22] MEDS: FINASTERIDE 5 MG TABLET PO SCH (08:34)
[2023-01-22] MEDS: FERROUS GLUCONATE 324 MG TABLET PO SCH ×2 (08:35→17:44)
[2023-01-22] MEDS: METFORMIN XR 500 MG TAB.SR.24H PO SCH (08:35)
[2023-01-22] MEDS: DOCUSATE SODIUM 100 MG CAPSULE PO SCH ×2 (08:35→22:00)
[2023-01-22] MEDS: HYDROCODONE/APAP 10-325 MG TABLET PO SCH (08:35)
[2023-01-22] MEDS: CALCIUM CITRATE 950MG (=200 MG ELEMENTAL CALCIUM) TAB PO SCH ×2 (08:35→17:43)
[2023-01-22] MEDS: TRAZODONE 50 MG TABLET PO SCH (22:00)
[2023-01-22] MEDS: TAMSULOSIN HCL 0.4 MG CAP.SR.24H PO SCH (22:01)
[2023-01-23] VITALS (7 sets, daily range): BP systolic 111–119; BP diastolic 53–60; TEMP 97.6–98; O2SAT 97–99
[2023-01-23] MEDS: PANTOPRAZOLE SODIUM 40 MG TABLET.DR PO SCH (07:08)
[2023-01-23] MEDS: IPRATROPIUM BROMIDE 0.5 MG/2.5 ML NEBU NEB SCH ×3 (08:02→23:30)
[2023-01-23] MEDS: ALBUTEROL SULFATE 2.5 MG/3 ML NEBU IH SCH ×3 (08:02→23:30)
[2023-01-23] MEDS: FERROUS GLUCONATE 324 MG TABLET PO SCH ×2 (08:37→17:15)
[2023-01-23] MEDS: CALCIUM CITRATE 950MG (=200 MG ELEMENTAL CALCIUM) TAB PO SCH ×2 (08:37→17:15)
[2023-01-23] MEDS: METFORMIN XR 500 MG TAB.SR.24H PO SCH (08:37)
[2023-01-23] MEDS: HYDROCODONE/APAP 10-325 MG TABLET PO SCH (08:38)
[2023-01-23] MEDS: FINASTERIDE 5 MG TABLET PO SCH (08:38)
[2023-01-23] MEDS: DOCUSATE SODIUM 100 MG CAPSULE PO SCH ×2 (08:38→20:35)
[2023-01-23] MEDS: POLYVINYL ALCOHOL OPHT DROPS 15 ML BOTTLE EACHEYE SCH (08:39)
[2023-01-23 16:26] LABS: IRON, SERUM 36 ug/dL (50-175)
[2023-01-23 16:27] LABS: BASOPHILS # (AUTO) 0.1 K/UL (0.0-0.2); BASOPHILS % (AUTO) 2.7 % (0.0-2.0); DIFFERENTIAL COMMENT 0; EOSINOPHILS # (AUTO) 0.1 K/uL (0.0-0.7); EOSINOPHILS % (AUTO) 5.8 % (0.0-7.0); HEMATOCRIT 27.7 % (36.7-47.1); HEMOGLOBIN 8.9 g/dL (12.5-16.3); LYMPHOCYTES # (AUTO) 0.5 K/uL (0.8-4.8); LYMPHOCYTES % (AUTO) 20.2 % (20.5-51.5); MEAN CORPUSCULAR HEMOGLOBIN 30.5 uug (23.8-33.4); MEAN CORPUSCULAR HGB CONC 32 g/dL (32.5-36.3); MEAN CORPUSCULAR VOLUME 95.1 fL (73.0-96.2); MONOCYTES # (AUTO) 0.3 K/uL (0.1-1.30); NEUTROPHILS # (AUTO) 1.5 K/uL (1.8-8.9); NEUTROPHILS % (AUTO) 61.3 % (38.5-71.5); PLATELET COUNT (AUTO) 87 K/uL (152-348); RED BLOOD CELL COUNT(AUTO) 2.92 MIL/uL (4.06-5.63); RED CELL DISTRIBUTION WIDTH 22.3 % (12.1-16.2); WHITE BLOOD COUNT (AUTO) 2.5 K/uL (3.6-10.2)
[2023-01-23 16:32] LABS: NEUTROPHILS % (MANUAL) 0 % (42-75)
[2023-01-23 16:33] LABS: LYMPHOCYTES % (MANUAL) 0 % (20-40)
[2023-01-23 16:37] LABS: ALANINE AMINOTRANSFERASE 25 U/L (16-63); ALBUMIN 2.8 g/dL (3.4-5.0); ALKALINE PHOSPHATASE 249 U/L (50-136); ASPARTATE AMINOTRANSFERASE 35 U/L (15-37); BILIRUBIN,TOTAL 1.2 mg/dL (0.2-1.0); CALCIUM 8.7 mg/dL (8.5-10.1); CARBON DIOXIDE 28 mmol/L (21-32); CHLORIDE 104 mmol/L (98-107); CREATININE 1.6 mg/dL (0.6-1.3); FERRITIN 255 ng/mL (26-388); GLUCOSE 108 mg/dL (74-106); POTASSIUM 4.3 mmol/L (3.5-5.1); SODIUM SERUM 140 mmol/L (136-145); TOTAL PROTEIN, SERUM 5.8 g/dL (6.4-8.2); UREA NITROGEN, BLOOD 26 mg/dL (7-18)
[2023-01-23] MEDS: TAMSULOSIN HCL 0.4 MG CAP.SR.24H PO SCH (20:34)
[2023-01-23] MEDS: TRAZODONE 50 MG TABLET PO SCH (20:35)
[2023-01-23 21:55] LABS: *BILIRUBIN,URIN NEGATIVE (NEGATIVE); *BLOOD, URINE NEGATIVE (NEGATIVE); *CLARITY,URINE CLEAR (CLEAR); *COLOR,URINE YELLOW (YELLOW); *KETONES,URINE NEGATIVE (NEGATIVE); *PROTEIN,URINE NEGATIVE (NEGATIVE); *UROBILINOGEN,URINE 0.2 E.U./dl (NORMAL); LEUKOCYTE ESTERASE ,URINE NEGATIVE (NEGATIVE); NITRITE, URINE NEGATIVE (NEGATIVE); PH,URINE 6.5 (5.0-8.0); UGLUCOSE NEGATIVE (NEGATIVE)
[2023-01-24 04:00] VITALS: BP 122/71; TEMP 98; O2SAT 97
[2023-01-24] MEDS: PANTOPRAZOLE SODIUM 40 MG TABLET.DR PO SCH (06:44)
[2023-01-24 07:28] LABS: DIFFERENTIAL COMMENT 0; EOSINOPHILS # (AUTO) 0.1 K/uL (0.0-0.7); EOSINOPHILS % (AUTO) 3.4 % (0.0-7.0); HEMATOCRIT 26.1 % (36.7-47.1); HEMOGLOBIN 8.6 g/dL (12.5-16.3); LYMPHOCYTES # (AUTO) 0.3 K/uL (0.8-4.8); LYMPHOCYTES % (AUTO) 17.6 % (20.5-51.5); MEAN CORPUSCULAR HEMOGLOBIN 31.4 uug (23.8-33.4); MEAN CORPUSCULAR HGB CONC 33 g/dL (32.5-36.3); MEAN CORPUSCULAR VOLUME 94.9 fL (73.0-96.2); MONOCYTES # (AUTO) 0.2 K/uL (0.1-1.30); MONOCYTES % (AUTO) 11.9 % (0.0-11.0); NEUTROPHILS # (AUTO) 1.3 K/uL (1.8-8.9); NEUTROPHILS % (AUTO) 66.1 % (38.5-71.5); PLATELET COUNT (AUTO) 81 K/uL (152-348); RED BLOOD CELL COUNT(AUTO) 2.75 MIL/uL (4.06-5.63)
[2023-01-24 08:02] LABS: WHITE BLOOD COUNT (AUTO) 1.9 K/uL (3.6-10.2)
[2023-01-24 08:06] LABS: *IMMUNOGLOBULIN G, SERUM 862 mg/dL (603-1613); IMMUNOGLOBULIN A, SERUM 304 mg/dL (61-437); IMMUNOGLOBULIN M, SERUM 71 mg/dL (15-143)
[2023-01-24 08:17] VITALS: O2SAT 97
[2023-01-24] MEDS: ALBUTEROL SULFATE 2.5 MG/3 ML NEBU IH SCH ×2 (08:17→15:06)
[2023-01-24] MEDS: IPRATROPIUM BROMIDE 0.5 MG/2.5 ML NEBU NEB SCH ×2 (08:17→15:06)
[2023-01-24 08:30] VITALS: BP 139/59; TEMP 98; O2SAT 99
[2023-01-24 08:38] LABS: EOSINOPHILS % (MANUAL) 5 % (0-8); LYMPHOCYTES % (MANUAL) 13 % (20-40); MONOCYTES % (MANUAL) 12 % (2-10); NEUTROPHILS % (MANUAL) 70 % (42-75)
[2023-01-24 08:39] LABS: ANISOCYTOSIS 3+; PLATELET ESTIMATE MARKED DECREASED
[2023-01-24] MEDS ORDERED: PROPRANOLOL HCL 10 MG TABLET PO SCH (09:00)
[2023-01-24] MEDS: FINASTERIDE 5 MG TABLET PO SCH (10:56)
[2023-01-24] MEDS: HYDROCODONE/APAP 10-325 MG TABLET PO SCH (10:56)
[2023-01-24] MEDS: CALCIUM CITRATE 950MG (=200 MG ELEMENTAL CALCIUM) TAB PO SCH ×2 (10:57→18:16)
[2023-01-24] MEDS: DOCUSATE SODIUM 100 MG CAPSULE PO SCH (10:57)
[2023-01-24] MEDS: FERROUS GLUCONATE 324 MG TABLET PO SCH ×2 (10:57→18:17)
[2023-01-24] MEDS: METFORMIN XR 500 MG TAB.SR.24H PO SCH (10:57)
[2023-01-24] MEDS: POLYVINYL ALCOHOL OPHT DROPS 15 ML BOTTLE EACHEYE SCH (10:58)
[2023-01-24] MEDS: SUCRALFATE 1 G/10 ML LIQUID UDC GT SCH ×2 (11:35→16:30)
[2023-01-24] MEDS ORDERED: SOD FERRIC GLUC COMPLX/SUCROSE 125 MG in IV NORMAL SALINE 100 ML IV SCH (14:00)
[2023-01-24 15:06] VITALS: O2SAT 97
[2023-01-24 16:00] VITALS: BP 117/74; TEMP 98.1; O2SAT 95
[2023-01-24] MEDS ORDERED: PROPOFOL 200 MG/20 ML BOTTLE ONE (17:00)
== END 2023-01-24 18:35 | disposition short-term general hospital (02) | DRG 559 ==
PROVIDERS: ADMIT Physical Medicine & Rehabilitation Pain Medicine; ATTEND Physical Medicine & Rehabilitation Pain Medicine
PROC: 30233N1 Transfusion of Nonautologous Red Blood Cells into Peripheral Vein, Percutaneous Approach (ICD-10-PCS; principal; 2023-01-15)
DX: S72.141D Displaced intertrochanteric fracture of right femur, subsequent encounter for closed fracture with routine healing (principal); E43 Unspecified severe protein-calorie malnutrition; N17.0 Acute kidney failure with tubular necrosis; I85.01 Esophageal varices with bleeding; D61.818 Other pancytopenia; G93.40 Encephalopathy, unspecified; N40.0 Benign prostatic hyperplasia without lower urinary tract symptoms; K74.60 Unspecified cirrhosis of liver; E11.9 Type 2 diabetes mellitus without complications; E55.9 Vitamin D deficiency, unspecified; D72.821 Monocytosis (symptomatic); E61.1 Iron deficiency; E78.5 Hyperlipidemia, unspecified; E88.09 Other disorders of plasma-protein metabolism, not elsewhere classified; I10 Essential (primary) hypertension; K31.9 Disease of stomach and duodenum, unspecified; W01.0XXD Fall on same level from slipping, tripping and stumbling without subsequent striking against object, subsequent encounter; Z87.891 Personal history of nicotine dependence; Z68.32 Body mass index [BMI] 32.0-32.9, adult; E66.9 Obesity, unspecified
CPT/HCPCS: 36415; 70030-TC; 76700; 82378; 82747; 82784; 83010; 83550; 83615; 83735; 84100; 84155; 84165; 84443; 85014; 85025; 85730; 86038; 86140; 86334; 86430; 86704; 86705; 86706; 86803; 86850; 86900; 86901; 86920; 87340; 87806; 88185; 94640; 94760; 97535-GO-CO; A4663; A9150; J1815; J2916; J3490; J3590; J7040; P9016

== ENCOUNTER 2023-01-24 07:15 | Day surgery (SDC) | payer MEDICARE, OTHER ==
[~2023-01-24 07:15] MED LIST: ACET-73 PO; ALBU2.5V38 IH; ASPI81TA31 PO; CALC200T42 PO; CHOL500062 PO; FENO160T PO; FERR324T17 PO; FINA1TAB11 PO; IPRA0.2S6 NEB; METF-495 PO; OXYC5TAB3 PO; PANT40TA49 PO; PROP10DR4 OP; TAMS-3 PO; TRAZ-182 PO
[2023-01-24] MEDS ORDERED: SUCRALFATE 1 G/10 ML LIQUID UDC GT SCH (11:30)
== END 2023-01-24 08:30 ==
LOC: DS 07:15 → EDSTATUS 09:47
PROVIDERS: ATTEND Internal Medicine Gastroenterology
DX: I85.00 Esophageal varices without bleeding (principal); K31.9 Disease of stomach and duodenum, unspecified; E11.9 Type 2 diabetes mellitus without complications; D64.9 Anemia, unspecified; F17.210 Nicotine dependence, cigarettes, uncomplicated; Z79.82 Long term (current) use of aspirin; Z79.84 Long term (current) use of oral hypoglycemic drugs; Z79.899 Other long term (current) drug therapy; Z98.890 Other specified postprocedural states
CPT/HCPCS: 43244; 82962; 85025; 85730; 36415; 83010; 85007; J2916; 70030-TC; J3490; J3590; J7040